=== PATIENT | male | born 1980 ===

== ENCOUNTER 2018-08-02 12:42 | Emergency (ER) | payer OTHER ==
[2018-08-02 12:42] VITALS: BMI 27.8
[2018-08-02 13:06] VITALS: BP 135/80; PULSE 18; RESP 77; TEMP 99; O2SAT 98
[2018-08-02] MEDS ORDERED: Fluorescein 1 mg Ophthalmic Strip ONE (13:13)
[2018-08-02] MEDS ORDERED: Fluorescein 1 mg Ophthalmic Strip OD ONE (13:21)
[2018-08-02] MEDS ORDERED: PROPARACAINE/FLUORESCEIN SOD 100 DROP/5 ML BOTTLE OD STA (13:21)
--- NOTE | 2018-08-02 13:25 | C.PDOC ---
History Of Present Illness 38 y/o male presents to the ED complaining of left eye pain and foreign body sensation since Thursday, thinks debris got into his eye when he was doing wood work at home. Patient states he was using a saw at the time. Tetanus vaccination is up to date. He denies any other injuries. Time Seen by Provider: 08/02/18 13:20 Chief Complaint (Nursing): Eye Problem History Per: Patient History/Exam Limitations: no limitations Onset/Duration Of Symptoms: Days Current Symptoms Are (Timing): Still Present Severity: Moderate Quality: "Pain" Associated Symptoms: Pain, FB Sensation. denies: Decreased Vision, Discharge From Eye Past Medical History Reviewed: Historical Data, Nursing Documentation, Vital Signs Vital Signs: Last Vital Signs Temp 99 F 08/02/18 13:05 Pulse 18 L 08/02/18 13:05 Resp 77 H 08/02/18 13:05 BP 135/80 08/02/18 13:05 Pulse Ox 98 08/02/18 13:05 - Medical History PMH: No Chronic Diseases Surgical History: Appendectomy Family History: States: No Known Family Hx - Social History Hx Alcohol Use: Yes Hx Substance Use: No Review Of Systems Constitutional: Negative for: Fever Eyes: Positive for: Pain, Other (FB sensation). Negative for: Vision Change ENT: Negative for: Ear Pain, Nose Congestion, Throat Pain Respiratory: Negative for: Cough, Shortness of Breath Skin: Negative for: Rash Neurological: Negative for: Headache, Dizziness Physical Exam - Physical Exam Appears: Well, Non-toxic, No Acute Distress Head: Atraumatic, Normacephalic Eye(s): bilateral: PERRL, EOMI, right: Normal Inspection, left: Other (Left corneal foreign body at 6 o'clock with surrounding fluorescein uptake, no corneal ulcers) Oral Mucosa: Moist Cardiovascular: Rhythm Regular Respiratory: Normal Breath Sounds, No Rales, No Rhonchi, No Wheezing Neurological/Psych: Oriented x3, Normal Cranial Nerves Gait: Steady ED Course And Treatment O2 Sat by Pulse Oximetry: 98 (RA) Pulse Ox Interpretation: Normal Progress Note: Fluoroscein stain used and eye visualized under Wood's lamp . I attempted to remove FB wth 22 gauge needle, but was unable to successfully remove entire foreign body. Discussed case with ophthalmology on-call, Dr. Butts, patient can be seen immediately in their office at [facility] ([facility]). Patient informed of instructions and will go to the office upon discharge. Rx for antibiotic eye drops given to patient. Reassessment Condition: Improved Disposition Counseled Patient/Family Regarding: Diagnosis, Need For Followup, Rx Given - Disposition Referrals: Joey Young [Staff Provider] - Disposition: HOME/ ROUTINE Disposition Time: 13:45 Condition: STABLE Additional Instructions: [facility] AFTER YOUR DISCHARGE FROM THE EMERGENCY ROOM (DR YOUNG) USE MEDICATION DIRECTED RETURN TO EMERGENCY ROOM IF SYMPTOMS WORSEN SEGUIRSE CON PALISADE EYE A TRAVS DE LA GARCIA INMEDIATAMENTE DESPUS DE TINOCO DESCARGA DE LA JARVIS DE EMERGENCIA UTILICE MEDICAMENTOS BRIANDA SE DIRIGE VUELVA A LA JARVIS DE EMERGENCIA SI LOS SNTOMAS SE CORNEJO PROBLEMAS Prescriptions: RX: Ofloxacin Ophth 0.3% [Ocuflox Ophth 0.3%] 1 drop GT Q4 #1 bottle Instructions: Foreign Body in Eye (DC) Forms: [employer] (Lithuanian) Print Language: SYRIAN - Clinical Impression Clinical Impression: Corneal foreign body - Scribe Statement The provider has reviewed the documentation as recorded by the Zina Masterson Provider Attestation: All medical record entries made by the Scribe were at my direction and personally dictated by me. I have reviewed the chart and agree that the record accurately reflects my personal performance of the history, physical exam, medical decision making, and the department course for this patient. I have also personally directed, reviewed, and agree with the discharge instructions and disposition.
[2018-08-02] MEDS ORDERED: Naproxen 550 mg Tab PO STA (13:41)
[2018-08-02] MEDS ORDERED: Naproxen 550 mg Tab PO ONE (13:47)
== END 2018-08-02 13:49 | disposition home or self-care (01) ==
LOC: C.ER 12:42
DX: T15.02XA Foreign body in cornea, left eye, initial encounter (principal); X58.XXXA Exposure to other specified factors, initial encounter; Y93.H9 Activity, other involving exterior property and land maintenance, building and construction; Y92.009 Unspecified place in unspecified non-institutional (private) residence as the place of occurrence of the external cause